=== PATIENT | female | born 1945 | race Two or more races ===

== ENCOUNTER 2023-09-13 16:35 | Emergency (ER) | payer OTHER ==
[~2023-09-13] VITALS: Ht 167.6 cm; Wt 79.8 kg
[2023-09-13 18:25] LABS: Basophils # (auto) 0.1 10 ^3/uL (0-0.2); Basophils % (auto) 0.5 % (0.0-2.0); Eosinophils # (auto) 0.4 10 ^3/uL (0-0.8); Hemoglobin 12.6 g/dL (12.2-16.2); Lymphocytes # (auto) 3.7 10 ^3/uL (0.4-5.4); Lymphocytes % (auto) 34.2 % (10.0-50.0); Mean Corpuscular Hemoglobin 29.8 pg (28.0-32.0); Mean Corpuscular Hgb Conc. 32.4 g/dL (32.0-36.0); Mean Corpuscular Volume 92.1 fL (80.0-100.0); Monocytes # (auto) 0.8 10 ^3/uL (0-1.3); Monocytes % (auto) 7.6 % (0.0-12.0); Neutrophils # (auto) 5.8 10 ^3/uL (1.6-8.6); Neutrophils % (auto) 53.7 % (37.0-80.0); Red Blood Cells 4.23 10^6/uL (4.0-5.20); Red Cell Distribution Width 15.1 % (11.8-14.3); White Blood Cell 10.7 10^3/uL (4.4-10.8)
[2023-09-13 18:37] LABS: Urine Bacteria FEW /hpf (None Seen); Urine Blood TRACE /uL (Negative); Urine Clarity Clear (Clear); Urine Color Yellow (Yellow); Urine Mucus FEW (None Seen); Urine Protein, UAD TRACE (Negative); Urine Specific Gravity 1.023 (1.001-1.035); Urine Urobilinogen 2 mg/dL (Negative); Urine WBC 3 /hpf (0 - 5); Urine pH 5.5 (5.0-9.0)
[2023-09-13 18:37] LABS: Chloride 107 mmol/L (98-107); Potassium 4.3 mmol/L (3.5-5.1); Sodium 139 mmol/L (136-145)
[2023-09-13 18:38] LABS: Anion Gap 6 (5-15); Carbon Dioxide 26 mmol/L (20-30)
[2023-09-13 18:39] LABS: Calcium 9.4 mg/dL (8.7-10.4)
[2023-09-13 18:43] LABS: Glucose 108 mg/dL (74-106)
[2023-09-13 18:44] LABS: Blood Urea Nitrogen 12 mg/dL (9-23)
[2023-09-13] MEDS ORDERED: CIPR-173 PO (19:15)
[2023-09-14] MEDS: KETOROLAC TROMETH 30 MG/ML 1ML VIAL IV ONE (00:52)
[2023-09-14] MEDS: ONDANSETRON HCL 4 MG/2 ML VIAL IV ONE (00:53)
[2023-09-14] MEDS: SODIUM CHLORIDE 0.9% 1,000 ML IVB ONE (00:53)
[2023-09-14 02:51] VITALS: BP 131/87; PULSE 78; RESP 16; TEMP 98.5; O2SAT 98
== END 2023-09-14 01:54 | disposition home or self-care (01) ==
LOC: ER 16:35
DX: N39.0 Urinary tract infection, site not specified (principal); R10.9 Unspecified abdominal pain; I10 Essential (primary) hypertension; E78.5 Hyperlipidemia, unspecified; Z98.890 Other specified postprocedural states; Z79.899 Other long term (current) drug therapy
CPT/HCPCS: 36415; 74176; 80048; 81001; 85025; 96361; 96374; 96375; 99285; J1885; J2405; J7030